=== PATIENT | female | born 1995 | race Two or more races ===

== ENCOUNTER 2022-02-11 15:31 | Emergency (ER) | payer OTHER ==
[~2022-02-11] VITALS: Ht 162.6 cm; Wt 68.0 kg
== END 2022-02-11 16:57 | disposition home or self-care (01) ==
LOC: ER 15:31
DX: M79.18 Myalgia, other site (principal)

== ENCOUNTER 2022-03-07 09:17 | Outpatient (CLI) | payer OTHER | END 2022-03-07 09:27 | disposition home or self-care (01) | LOC: LAB 09:17 | PROVIDERS: ATTEND Obstetrics & Gynecology | DX: N30.00 Acute cystitis without hematuria (principal) ==

== ENCOUNTER 2022-04-10 07:33 | Outpatient (CLI) | payer OTHER | END 2022-04-10 07:50 | disposition home or self-care (01) | LOC: MRI 07:33 | DX: M25.552 Pain in left hip (principal) | CPT/HCPCS: 72195 ==